=== PATIENT | male | born 1945 | race Caucasian/White ===

== ENCOUNTER → 2016-10-23 | Outpatient (CLI) | payer MEDICARE ==
[~2016-10-23] VITALS: Ht 175.3 cm; Wt 75.3 kg
[~2016-10-23] MED LIST: ASP325T; CATHETER FLUSH 10 ML SYR IV PRN
[2016-10-23 12:22] LABS: ALBUMIN 4.8 G/DL (3.2-4.5); BILIRUBIN,DIRECT 0.3 MG/DL (0.0-0.3); BILIRUBIN,INDIRECT 0.6 MG/DL; BILIRUBIN,TOTAL 0.9 MG/DL (0.1-1.0); TOTAL PROTEIN 7.5 G/DL (6.4-8.2)
[2016-10-23 13:11] VITALS: BP 128/66
--- NOTE | 2016-10-24 09:35 | ECHOCARDIOGRAPHY REPORT ---
PROCEDURE PHYSICIAN: JENNY FRAZIER DATE OF PROCEDURE: 10/23/2016 TWO DIMENSIONAL ECHOCARDIOGRAM REPORT PRIMARY PHYSICIAN: OTHER PHYSICIAN: REFERRING PHYSICIAN: Dr. Cormier ORDERING PHYSICIAN: INDICATION FOR THE PROCEDURE: Coronary artery disease. MEASUREMENTS DERIVED VALUES LV DIAMETER (LAX) NORMALS NORMALS Diastolic 3.9 (3.6-5.2) Eject. Fract. 60% (60%+/-6%) Systolic (2.3-3.9) Diastolic Vol. % Shortening (0.22-0.42) Systolic Vol. Aortic Root IVS THICKNESS Diastolic 1 (0.6-1.1) LVPW THICKNESS Diastolic 1 (0.6-1.1) LA DIAMETER Systolic 3.3 (2.1-3.7) FINDINGS: 1. Technical quality is good. 2. The left ventricle is normal in size with normal contractility. Systolic function appeared to be normal. Estimated ejection fraction 60%. Diastolic dysfunction is suggested by Doppler. 3. The left atrium is normal in size. No clot or thrombus were seen within the left atrium. 4. The right atrium and right ventricle are normal in size. No clot or thrombus were seen within the right side. 5. Mitral valve is calcified with mild mitral regurgitation noted by color Doppler flow. No mitral valve prolapse. No mitral valve stenosis. 6. Aortic valve is calcified, trileaflet with normal opening and closing pattern. No significant aortic stenosis or regurgitation was seen. 7. Tricuspid valve is normal in morphology with mild tricuspid regurgitation noted by color Doppler flow. Doppler across tricuspid valve estimated pulmonary artery pressure of 9+ right atrial pressure. 8. Pulmonic valve is functioning normally. 9. No pericardial effusion. IN CONCLUSION: 1. Normal left ventricular size and systolic function with estimated ejection fraction 60%. Diastolic dysfunction is suggested by Doppler. 2. Aortic valve sclerosis. No aortic stenosis. 3. Mild mitral and tricuspid regurgitation. 4. Estimated pulmonary artery pressure of 15 mmHg. Job ID: [id number] Dictated Date: 10/23/2016 17:25:59 Homicide Squad Captain Date: 10/24/2016 09:33:33 / jade
--- NOTE | 2016-10-24 12:18 | STRESS TEST ---
PROCEDURE PHYSICIAN: JENNY FRAZIER EXERCISE STRESS TEST REPORT DATE OF PROCEDURE: 10/23/2016 REFERRING PHYSICIAN: Dr. Mike Cormier INDICATION: Coronary artery disease. Baseline heart rate is 60, baseline blood pressure: 130/78. Baseline EKG: Sinus rhythm with no ischemic changes. SUMMARY: The patient was injected with 10.84 mCi of technetium 99 Myoview and the resting images were obtained. Then the patient started exercising with a baseline heart rate, blood pressure and EKG mentioned above. At minute 5 and 30 seconds, the patient was injected with 32.8 mCi of technetium 99 Myoview. The patient was able to finish a total of 6 minutes and 30 seconds on standard Levis protocol. Total 7 METs, achieving maximum heart rate of 139, which is 94% of maximum expected heart rate. With peak exercise level, blood pressure and EKG did not show any acute changes. During recovery, heart rate and blood pressure returned to baseline. The resting and stress images were reviewed and compared in the short axis, horizontal long axis, and vertical long axis views. Review of the images showed good radiotracer uptake with no significant ischemia or infarction on SPECT images. SSS is 4, SDS 0, TID value 0.93. On the gated images, the left ventricle appeared to be normal size with normal contractility. Calculated ejection fraction 73%. CONCLUSION: 1. Good exercise tolerance a total of 6 minutes 30 seconds on standard Elvis protocol. Total 7 METs, achieving 94% of maximum expected heart rate. 2. Appropriate heart rate and blood pressure response to exercise. Returned to baseline during recovery. 3. Diaphragmatic attenuation with no significant ischemia or infarction on SPECT images. 4. Normal left ventricular size with normal contractility. Calculated ejection fraction 73%. Job ID: [id number] Dictated Date: 10/24/2016 08:44:50 Integration Manager Date: 10/24/2016 12:13:10 / tiny
== END ==
LOC: CARD 10:45
PROVIDERS: ATTEND Physician Assistant
DX: I25.10 Atherosclerotic heart disease of native coronary artery without angina pectoris (principal); I65.23 Occlusion and stenosis of bilateral carotid arteries; I10 Essential (primary) hypertension; E78.2 Mixed hyperlipidemia
CPT/HCPCS: 36415; 78452; 80061; 80076; 93017; 93306

== ENCOUNTER 2018-04-07 10:05 | Outpatient (CLI) | payer MEDICARE ==
[~2018-04-07] VITALS: Ht 175.3 cm; Wt 72.1 kg
[~2018-04-07 10:05] MED LIST changes: -CATHETER FLUSH 10 ML SYR IV PRN
[2018-04-07] MEDS ORDERED: VITA1TAB17 PO (10:31)
[2018-04-07] MEDS ORDERED: UBID100C17 PO (10:31)
[2018-04-07] MEDS ORDERED: METO-333 PO (10:31)
[2018-04-07] MEDS ORDERED: PRAV20TA3 PO (10:31)
[2018-04-07] MEDS ORDERED: OMEG100032 PO (10:31)
[2018-04-07] MEDS ORDERED: LISI10TA2 PO (10:31)
== END 2018-04-07 10:33 ==
LOC: PREOP 10:05
PROVIDERS: ATTEND Surgery
DX: Z01.818 Encounter for other preprocedural examination (principal)

== ENCOUNTER 2018-04-10 11:29 | Day surgery (SDC) | payer MEDICARE, OTHER ==
[~2018-04-10] VITALS: Ht 175.3 cm; Wt 72.1 kg
[~2018-04-10 11:29] MED LIST changes: +LISI10TA2 PO; +METO-333 PO; +OMEG100032 PO; +PRAV20TA3 PO; +UBID100C17 PO; +VITA1TAB17 PO
--- OUTSIDE RECORDS SUMMARY | 2018-04-10 11:34 | XMS REPORT | Continuity of Care Document ---
Author Author [facility] Organization [facility] Address Unknown Phone Unavailable Allergies Active Description Code Type Severity Reaction Onset Reported/Identified Relationship to Patient Clinical Status Yes TETRACYCLINE [id number] DRUG N/A N/A Yes tetracycline [id number] Drug Allergy Mild N/A 01/06/2009 Medications There is no data. Problems Date Dx Coded Attending Type Code Diagnosis Diagnosed By 10/10/2014 Ot 397.0 10/10/2014 Ot 401.9 10/10/2014 Ot 414.00 10/10/2014 Ot 424.0 10/10/2014 JENYN FRAZIER MD Ot 397.0 10/10/2014 JENNY FRAZIER MD Ot 414.00 10/10/2014 JENNY FRAZIER MD Ot 424.0 10/10/2014 JENNY FRAZIER MD Ot 786.50 10/11/2014 Ot 397.0 10/11/2014 Ot 401.9 10/11/2014 Ot 414.00 10/11/2014 Ot 424.0 10/11/2014 JENNY FRAZIER MD Ot 397.0 10/11/2014 JENNY FRAZIER MD Ot 414.00 10/11/2014 JENNY FRAZIER MD Ot 424.0 10/11/2014 JENNY FRAZIER MD Ot 786.50 10/11/2014 Ot 397.0 10/11/2014 Ot 401.9 10/11/2014 Ot 414.00 10/11/2014 Ot 424.0 10/11/2014 JENNY FRAZIER MD Ot 397.0 10/11/2014 JENNY FRAZIER MD Ot 414.00 10/11/2014 JENNY FRAZIER MD Ot 424.0 10/11/2014 JENNY FRAZIER MD Ot 786.50 10/12/2014 Ot 397.0 10/12/2014 Ot 401.9 10/12/2014 Ot 414.00 10/12/2014 Ot 424.0 10/12/2014 JENNY FRAZIER MD Ot 397.0 10/12/2014 KARIN RIDLEY, JENNY Tran Ot 414.00 10/12/2014 KARIN RIDLEY, JENNY Tran Ot 424.0 10/12/2014 KARIN RIDLEY, JENNY Tran Ot 786.50 11/10/2014 DAVID PA, IJEOMA K Ot 272.4 11/10/2014 DAVID PA, IJEOMA K Ot 401.9 11/10/2014 DAVID PA, IJEOMA K Ot 414.00 11/10/2014 DAVID PA, IJEOMA K Ot 433.10 11/16/2014 DAVID PA, IJEOMA K Ot 272.4 11/16/2014 DAVID PA, IJEOMA K Ot 401.9 11/16/2014 DAVID PA, IJEOMA K Ot 414.00 11/16/2014 DAVID PA, IJEOMA K Ot 433.10 11/17/2014 DAVID PA, IJEOMA K Ot 272.4 11/17/2014 DAVID PA, IJEOMA K Ot 401.9 11/17/2014 DAVID PA, IJEOMA K Ot 414.00 11/17/2014 DAVID PA, IJEOMA K Ot 433.10 10/23/2016 Ot 397.0 TRICUSPID VALVE DISEASE 10/23/2016 Ot 401.9 HYPERTENSION NOS 10/23/2016 Ot 414.00 CORON ATHEROSCLER NOS TYPE VESSEL, NATIV 10/23/2016 Ot 424.0 MITRAL VALVE DISORDER 10/23/2016 KARIN RIDLEY, JENNY Tran Ot 397.0 TRICUSPID VALVE DISEASE 10/23/2016 KARIN RIDLEY, JENNY Tran Ot 414.00 CORON ATHEROSCLER NOS TYPE VESSEL, NATIV 10/23/2016 KARIN RIDLEY, JENNY Tran Ot 424.0 MITRAL VALVE DISORDER 10/23/2016 KARIN RIDLEY, JENNY Tran Ot 786.50 CHEST PAIN NOS 10/23/2016 DAVID PA, IJEOMA K Ot 272.4 HYPERLIPIDEMIA NEC/NOS 10/23/2016 DAVID PA, IJEOMA K Ot 401.9 HYPERTENSION NOS 10/23/2016 DAVID PA, IJEOMA K Ot 414.00 CORON ATHEROSCLER NOS TYPE VESSEL, NATIV 10/23/2016 DAVID PA, IJEOMA K Ot 433.10 CAROTID ARTERY OCCLUSION W O CEREBRAL IN 10/23/2016 IJEOMA LEYVA Ot 272.4 HYPERLIPIDEMIA NEC/NOS 10/23/2016 IJEOMA LEYVA Ot 401.9 HYPERTENSION NOS 10/23/2016 IJEOMA LEYVA Ot 414.00 CORON ATHEROSCLER NOS TYPE VESSEL, NATIV 10/23/2016 IJEOMA LEYVA Ot 433.10 CAROTID ARTERY OCCLUSION W O CEREBRAL IN 10/24/2016 IJEOMA LEYVA Ot E78.2 MIXED HYPERLIPIDEMIA 10/24/2016 IJEOMA LEYVA Ot I10 ESSENTIAL (PRIMARY) HYPERTENSION 10/24/2016 IJEOMA LEYVA Ot I25.10 ATHSCL HEART DISEASE OF [place] CORONARY 10/24/2016 IJEOMA LEYVA Ot I65.23 OCCLUSION AND STENOSIS OF [place]ILATERAL [place] 10/25/2016 IJEOMA LEYVA Ot E78.2 MIXED HYPERLIPIDEMIA 10/25/2016 IJEOMA LEYVA Ot I10 ESSENTIAL (PRIMARY) HYPERTENSION 10/25/2016 IJEOMA LEYVA Ot I25.10 ATHSCL HEART DISEASE OF [place] CORONARY 10/25/2016 IJEOMA LEYVA K Ot I65.23 OCCLUSION AND STENOSIS OF [place]IL[place]AL [place] 11/13/2016 IJEOMA LEYVA Ot E78.2 MIXED HYPERLIPIDEMIA 11/13/2016 IJEOMA LEYVA Ot I10 ESSENTIAL (PRIMARY) HYPERTENSION 11/13/2016 IJEOMA LEYVA Ot I25.10 ATHSCL HEART DISEASE OF [place] CORONARY 11/13/2016 IJEOMA LEYVA Ot I65.23 OCCLUSION AND STENOSIS OF [place]AL [place] 11/21/2016 IJEOMA LEYVA Ot E78.2 MIXED HYPERLIPIDEMIA 11/21/2016 IJEOMA LEYVA K Ot I10 ESSENTIAL (PRIMARY) HYPERTENSION 11/21/2016 IJEOMA LEYVA K Ot I25.10 ATHSCL HEART DISEASE OF [place] CORONARY 11/21/2016 IJEOMA LEYVA K Ot I65.23 OCCLUSION AND STENOSIS OF [place]AL [place] 03/31/2018 Mike Cormier W 530.81 ESOPHAGEAL REFLUX 03/31/2018 Mike Cormier K21.0 GASTRO-ESOPHAGEAL REFLUX DISEASE WITH ESOPHAGITIS 04/06/2018 Mike Cormier 530.81 ESOPHAGEAL REFLUX 04/06/2018 Mike Cormier 789.01 ABDOMINAL PAIN, RIGHT UPPER QUADRANT 04/06/2018 Mike Cormier K21.0 GASTRO-ESOPHAGEAL REFLUX DISEASE WITH ESOPHAGITIS 04/06/2018 Mike Cormier R10.11 RIGHT UPPER QUADRANT PAIN 04/08/2018 PRADEEP RIDLEY, ELOISE Campos Z01.818 ENCOUNTER FOR OTHER PREPROCEDURAL EXAMIN Procedures There is no data. Results Test Result Range Liver function panel (serum or plasma alk phos, alb, total and direct bili, total protein, ALT, AST) - 10/23/16 11:55 Serum or plasma total bilirubin measurement (mass/volume) 0.9 mg/dL 0.1-1.0 Serum or plasma alkaline phosphatase measurement (enzymatic activity/volume) 66 U/L 40-136 Serum or plasma aspartate aminotransferase measurement (enzymatic activity/ volume) 17 U/L 5-34 Serum or plasma alanine aminotransferase measurement (enzymatic activity/volume ) 13 U/L 0-55 Serum or plasma protein measurement (mass/volume) 7.5 g/dL 6.4-8.2 Serum or plasma albumin measurement (mass/volume) 4.8 g/dL 3.2-4.5 Bilirubin direct 0.3 mg/dL 0.0-0.3 Serum or plasma indirect bilirubin measurement (mass/volume) 0.6 mg/ dL [facility] Lipid 1996 panel - 10/23/16 11:55 Serum or plasma triglyceride measurement (mass/volume) 236 mg/dL <150 Serum or plasma cholesterol measurement (mass/volume) 198 mg/dL < 200 Serum or plasma cholesterol in HDL measurement (mass/volume) 57 mg/ dL 40-60 Cholesterol in LDL [mass/volume] in serum or plasma by direct assay 107 mg/dL 1-129 Serum or plasma cholesterol in VLDL measurement (mass/volume) 47 mg/ dL 5-40 Lipid Panel - 12/31/17 09:53 C/HDL 3.6 3.7-6.7 Cholesterol 171 mg/dL 100-240 HDL 48 mg/dL 30-85 LDL-Calculated 95 mg/dL 0-100 Trig 141 mg/dL 35-160 VLDL 28 mg/dL 0-42 Comprehensive Metabolic Panel - 03/31/18 14:53 Albumin 3.5 g/dL 3.6-5.1 ALP 247 U/L 35-130 ALT 46 U/L 6-45 Anion Gap 21 6-14 AST 28 U/L 2-40 BUN 19 mg/dL 5-25 Calcium 9.1 mg/dL 8.3-10.4 Chloride 104 mmol/L 95-114 CO2 20 mEq/L 22-33 Creat 1.35 mg/dL 0.50-1.50 eGFR 52 mL/min/1.73m2 >59 Globulin 2.7 g/dL 2.3-3.5 Glucose 97 mg/dL 70-110 Osmo 293 280-295 Potassium 3.9 mmol/L 3.5-5.3 Sodium 141 mmol/L 134-148 TBil 0.8 mg/dL 0.2-1.2 TP 6.2 g/dL 6.0-8.3 BMP - 04/06/18 10:40 Anion Gap 19 6-14 BUN 17 mg/dL 5-25 Calcium 9.7 mg/dL 8.3-10.4 Chloride 101 mmol/L 95-114 CO2 24 mEq/L 22-33 Creat 1.17 mg/dL 0.50-1.50 eGFR 61 mL/min/1.73m2 >59 Glucose 95 mg/dL 70-110 Osmo 288 280-295 Potassium 5.1 mmol/L 3.5-5.3 Sodium 139 mmol/L 134-148 Encounters ACCT No. Visit Date/Time Discharge Status Pt. Type Provider Facility Loc./Unit Complaint [id number] 05/17/2014 15:02:53 05/17/2014 23:59:59 [facility] Outpatient Leslie Carroll [id number] 10/29/2014 14:05:56 ACT Document Registration [id number] 04/06/2018 08:55:00 04/06/2018 23:59:00 DIS Outpatient Mike Cormier [id number] 03/31/2018 14:50:00 03/31/2018 23:59:00 DIS Outpatient Mike Cormier [id number] 12/31/2017 09:50:00 12/31/2017 23:59:00 DIS Outpatient Mike Cormier [id number] 12/30/2017 15:29:00 12/30/2017 23:59:00 DIS Outpatient Mike Cormier [id number] 03/28/2018 16:09:45 Document Registration [id number] 03/28/2018 15:56:02 Document Registration [id number] 04/07/2018 10:05:00 04/07/2018 10:33:00 DIS Outpatient ELOISE FERNÁNDEZ MD [facility] PREOP EGD [id number] 10/23/2016 10:45:00 10/23/2016 23:59:59 CLS Outpatient IJEOMA LEYVA [facility] CARD CAD,CAROTID ARTERY STENOSIS, HTN [id number] 10/25/2014 11:51:00 10/25/2014 23:59:59 CLS Outpatient IJEOMA LEYVA [facility] CARD CAD,APRIL,HTN, HLP [id number] 10/12/2014 09:18:00 10/12/2014 23:59:59 CLS Outpatient IJEOMA LEYVA [facility] CARD CAD,APRIL,HTN, HLP [id number] 06/16/2013 09:30:00 06/16/2013 23:59:59 CLS Outpatient KARIN IRDLEY, JENNY Tran [facility] CARD CP,CAD [id number] 04/08/2018 10:15:00 PEN Preadmit ELOISE FERNÁNDEZ MD [facility] ENDO REFLUX [id number] 10/10/2014 08:49:00 Document Registration [id number] 10/10/2014 08:49:00 Document Registration [id number] 01/08/2012 13:15:00 Document Registration
--- NOTE | 2018-04-10 11:44 | Conscious Sedation/ASA ---
Conscious Sedation Pre-Proced Time Reviewed: 11:40 ASA Class: 2 Airway Mallampati Classification: ([place] dee-ni' appropriate class) I. II. III, IV Lungs Heart ASA score ASA 1: a normal healthy patient ASA 2: a patient with a mild systemic disease (mid diabetes, controlled hypertension, obesity ASA 3: a patient with a severe systemic disease that limits activity (angina , COPD, prior Myocardial infarction) ASA 4: a patient with an incapacitating disease that is a constant threat to life (CHF, renal failure) ASA 5: a moribund patient not expected to survive 24 hrs. (ruptured aneurysm) ASA 6: a declared brain patient whose organs are being harvested. For emergent operations, add the letter E after the classification Grade 2 Sedation Plan: Analgesia, Amnesia, Plan communicated to team members, Discussed options with patient/fam, Discussed risks with patient/fam Note The patient is an appropriate candidate to undergo the planned procedure, sedation, and anesthesia. The patient immediately re-assessed prior to indication. ELOISE FERNÁNDEZ MD Apr 10, 2018 11:44 am
--- NOTE | 2018-04-10 11:44 | Progress Note-Pre Operative ---
Pre-Operative Progress Note H&P Reviewed The H&P was reviewed, patient examined and no changes noted. Date Seen by Provider: Apr 10, 2018 Time Seen by Provider: 11:40 Date H&P Reviewed: Apr 10, 2018 Time H&P Reviewed: 11:40 Pre-Operative Diagnosis: ELOISE CAMARILLO MD Apr 10, 2018 11:44 am
[2018-04-10] MEDS ORDERED: ACETAMINOPHEN 325 MG TABLET PO PRN (11:45)
[2018-04-10] MEDS ORDERED: morphine INJ 10 MG/ML 1ML (SYR OR VIAL) IV PRN (11:45)
[2018-04-10] MEDS ORDERED: ONDANSETRON 4 MG/2 ML (SDV) Z0FRAN IV PRN (11:45)
[2018-04-10] MEDS ORDERED: HYDROcodone/APAP 5 MG/325 MG (LORTAB) TAB PO PRN (11:45)
[2018-04-10] MEDS ORDERED: NS IV 500 ML 500 ML IV PRN (12:11)
[2018-04-10] MEDS ORDERED: HURRICAINE EXT TUBE (BENZOCAINE) XX PRN (12:15)
[2018-04-10 12:29] VITALS: BP 112/72
[2018-04-10] MEDS ORDERED: NS IV 500 ML 500 ML ONE (12:31)
[2018-04-10] MEDS ORDERED: MIDAZOLAM 2 MG/2 ML (VERSED) VIAL ONE ×3 (13:03→13:04)
[2018-04-10] MEDS ORDERED: LIDOCAINE JELLY 2% (XYLOCAINE) 5 ML TUBE ONE (13:03)
[2018-04-10] MEDS ORDERED: fentaNYL INJECTION 100 MCG/2 ML AMP ONE (13:03)
[2018-04-10] MEDS: MIDAZOLAM 2 MG/2 ML (VERSED) VIAL IVP PRN ×2 (13:05→13:08)
[2018-04-10] MEDS: fentaNYL INJECTION 100 MCG/2 ML AMP IVP PRN ×2 (13:06→13:09)
[2018-04-10 13:55] VITALS: BP 93/52
[2018-04-10] MEDS ORDERED: PANT40TA3 PO (14:09)
[2018-04-10 14:25] VITALS: BP 126/62
[2018-04-10 15:08] VITALS: BP 126/62
--- NOTE | 2018-04-10 20:30 | Progress Note-Post Operative ---
Post-Operative Progess Note Surgeon (s)/Health Services Administrator (s) Surgeon ELOISE FERNÁNDEZ MD Health Services Administrator: none Pre-Operative Diagnosis GERD Post-Operative Diagnosis reflux esophagitis(class B), small-mod HH(2.5-3cm), mild gastritis. Procedure & Operative Findings Date of Procedure 04/10/18 Procedure Performed/Findings EGD w/bx Anesthesia Type CS Estimated Blood Loss Estimated blood loss (mL): minimal Specimens/Packing Specimens Removed GE jxn, antrum ELOISE FERNÁNDEZ MD Apr 10, 2018 8:30 pm
--- NOTE | 2018-04-10 21:28 | OPERATIVE REPORT ---
DATE OF SERVICE: 04/10/2018 ATTENDING PRIMARY CARE PHYSICIAN: Mike Cormier DO PREOPERATIVE DIAGNOSIS: Gastroesophageal reflux disease. POSTOPERATIVE DIAGNOSES: Reflux esophagitis class B, hiatal hernia, small to moderate size approximately 2.5 to 3 cm in size. Mild to moderate gastritis. PROCEDURE: EGD with biopsy. SURGEON: Eloise Fernández MD ANESTHESIA: Conscious sedation. ESTIMATED BLOOD LOSS: Minimal. FINDINGS: Reflux esophagitis class B with a small to moderate size hiatal hernia 2.5 to 3 cm in size. There was a mild to moderate gastritis. There were no formal ulcerations, polyps or any neoplasms identified. Pylorus and duodenum appeared normal with no distal obstructions. DISPOSITION: The patient tolerated the procedure well. INDICATIONS: The patient is a 72-year-old male referred over to us for gastroesophageal reflux disease for greater than 10 years. He reports an epigastric burning sensation on an intermittent basis and he states that he has tried a number of different [id number] medications, which would help at times; however, none at other times. He does not report any josue episodes of nausea, no vomiting as well as no lower gastrointestinal symptoms. DESCRIPTION OF PROCEDURE: The patient was brought to the endoscopy suite, laid in the left lateral decubitus position. After adequate IV pain and sedating medications and conscious sedation anesthesia, The mouthpiece was applied. Endoscope was placed in the mouth, visualizing the pharynx and hypopharyngeal region. Vocal cords, epiglottis and vallecula identified and appeared to be normal. The endoscope was then gently intubated in the esophageal opening and esophagus insufflated. The endoscope was then advanced through the first, second and third portion of the esophagus at the level of the GE junction and reflux esophagitis class B identified. There were no ulcers or strictures identified in this region. A biopsy was taken with forceps with visualization of good hemostasis. The endoscope was then easily advanced into the stomach and then endoscope retroflexed, visualizing a small to moderate size hiatal hernia 2.5 to 3 cm in size. There was a mild to moderate gastritis; however, nothing severe and no ulcers, polyps or any neoplasms identified. A biopsy of the antrum was then taken for H. pylori with forceps with visualization of good hemostasis. The endoscope was then advanced through the pylorus and the first and second portion of the duodenum, which appeared normal with no distal obstructions. The endoscope was then slowly withdrawn with taking a second look and suctioning of residual air with no additional findings. The patient tolerated the procedure well. We will recommend medical management for now with avoidance of caffeinated beverages, spicy, greasy and acidic foods as well as taking in small more frequent meals and avoidance of eating at night. We also want him to take a prescription strength PPI acid gluer for at least 3 months and we will start him on pantoprazole 40 mg daily to see if this helps with his symptoms. Job ID: [id number] DocumentID: [id number] Dictated Date: 04/10/2018 13:29:31 Wildlife Ecology Professor Date: 04/10/2018 21:28:01 Dictated By: ELOISE FERNÁNDEZ MD MTDD
== END 2018-04-10 15:05 | disposition home or self-care (01) ==
LOC: ENDO 11:29
PROVIDERS: ATTEND Surgery
DX: K21.0 Gastro-esophageal reflux disease with esophagitis (principal); K44.9 Diaphragmatic hernia without obstruction or gangrene; K29.70 Gastritis, unspecified, without bleeding; I10 Essential (primary) hypertension